=== PATIENT | male | born 1995 | race Caucasian/White ===

== ENCOUNTER 2020-12-21 22:18 | Emergency (ER) | payer BC ==
[~2020-12-21] VITALS: Ht 172.7 cm; Wt 79.4 kg
[2020-12-21 22:24] VITALS: BP 120/86
--- NOTE | 2020-12-21 22:35 | NUR ---
PT TAKEN TO X[facility] FROM [facility]
--- NOTE | 2020-12-21 22:39 | NUR ---
PT RETURN FROM [facility] TO [facility]
--- NOTE | 2020-12-22 00:38 | NUR ---
PT TAKEN TO BED #12
--- NOTE | 2020-12-22 00:41 | NUR ---
c/o flu-like symptoms started on monday. Got into contact with someone that has the flu. "feeling weak", has a stuffy nose, headache that throbs, cough, and some nausea. patient denies fever. patient denies taking any medication. Lungs are normal and can be heard upon auscultation. AAOx4. PMH: n/a Allergies: penicillins, bee, pollen
[2020-12-22] MEDS ORDERED: TAM75 PO (01:15)
[2020-12-22 01:22] VITALS: BP 145/68
--- NOTE | 2020-12-22 01:22 | NUR ---
Patient discharged with v/s stable. Written and verbal after care instructions given and explained. Patient alert, oriented and verbalized understanding of instructions. Ambulatory with steady gait. All questions addressed prior to discharge. ID band removed. Patient advised to follow up with PMD. Rx of TAMIFLU given. Form signed with ERMD signature for work form. Patient educated on indication of medication including possible reaction and side effects. Opportunity to ask questions provided and answered.
== END 2020-12-22 01:22 | disposition home or self-care (01) ==
LOC: MED 22:18
DX: B34.9 Viral infection, unspecified (principal); Z88.0 Allergy status to penicillin; Z79.899 Other long term (current) drug therapy
CPT/HCPCS: 71045; 99283